=== PATIENT | female | born 1965 ===

== ENCOUNTER 2020-07-27 13:56 | Outpatient (CLI) | payer OTHER | END 2020-07-27 14:30 | disposition home or self-care (01) | LOC: OFIC 805 13:56 | PROVIDERS: ATTEND Otolaryngology Otology & Neurotology | DX: H90.3 Sensorineural hearing loss, bilateral (principal); H90.6 Mixed conductive and sensorineural hearing loss, bilateral; H70.13 Chronic mastoiditis, bilateral ==

== ENCOUNTER 2020-08-17 14:50 | Outpatient (CLI) | payer OTHER | END 2020-08-17 17:08 | disposition home or self-care (01) | LOC: OFIC 805 14:50 | PROVIDERS: ATTEND Otolaryngology Otology & Neurotology | DX: H70.13 Chronic mastoiditis, bilateral (principal); H90.6 Mixed conductive and sensorineural hearing loss, bilateral; H69.83 Other specified disorders of Eustachian tube, bilateral; H90.3 Sensorineural hearing loss, bilateral ==